=== PATIENT | female | born 1960 | race Caucasian/White ===

== ENCOUNTER 2025-05-18 11:12 | Outpatient (CLI) | payer OTHER, SELFPAY ==
--- NOTE | ~2025-05-18 | XR_ITS ---
XR thoracic spine 3V 05/18/2025 11:34 Indication: Thoracic back pain Procedure: 3 views thoracic spine Comparison: No prior studies for comparison. Findings: There is mild multilevel thoracic spondylosis with levoscoliosis centered at T6-7 measuring approximately 8 degrees. No fracture or traumatic malalignment. No paraspinal soft tissue abnormality. Surrounding osseous structures within normal limits. Impression: 1: Mild thoracic spondylosis with levoscoliosis. Reviewed, dictated and finalized at location O. PATIONAL HEALTH PHYSICIAN Impression: 1: Mild thoracic spondylosis with levoscoliosis.
== END 2025-05-18 11:13 | disposition home or self-care (01) ==
PROVIDERS: PCP Internal Medicine; Visit Provider Internal Medicine
DX: M47.814 Spondylosis without myelopathy or radiculopathy, thoracic region (principal); M41.34 Thoracogenic scoliosis, thoracic region
CPT/HCPCS: 72072